=== PATIENT | female | born 1955 | race Caucasian/White ===

== ENCOUNTER 2018-11-30 09:15 | Outpatient (CLI) | payer OTHER ==
--- NOTE | 2018-11-30 23:19 | EKG ---
Test Reason : [facility] Blood Pressure : / mmHG Vent. Rate : 059 BPM Atrial Rate : 059 BPM P-R Int : 148 ms QRS Dur : 090 ms QT Int : 420 ms P-R-T Axes : 037 -11 023 degrees QTc Int : 415 ms Sinus bradycardia Otherwise normal ECG When compared with ECG of 27-AUG-1995 02:13, No significant change was found Confirmed by SALEEM LÓPEZ ([id number]) on 11/30/2018 11:18:25 PM Referred By: DERRICK Confirmed By:SALEEM LÓPEZ
== END 2018-11-30 09:16 | disposition home or self-care (01) ==
LOC: EKG 09:15
PROVIDERS: ATTEND Otolaryngology Plastic Surgery within the Head & Neck
DX: J34.89 Other specified disorders of nose and nasal sinuses (principal); H65.23 Chronic serous otitis media, bilateral; R00.1 Bradycardia, unspecified
CPT/HCPCS: 93005; 93010

== ENCOUNTER 2025-05-22 12:11 | Outpatient (CLI) | payer OTHER | END 2025-05-22 12:12 | disposition home or self-care (01) | LOC: BICMRI 12:11 | PROVIDERS: ATTEND Specialist | DX: M47.26 Other spondylosis with radiculopathy, lumbar region (principal); M47.27 Other spondylosis with radiculopathy, lumbosacral region; M48.061 Spinal stenosis, lumbar region without neurogenic claudication | CPT/HCPCS: 72148 ==